=== PATIENT | male | born 1975 | race Caucasian/White ===

== ENCOUNTER 2019-06-18 15:37 | Inpatient (IN) ==
[2019-06-18 16:12] LABS: BILIRUBIN URINE NEGATIVE (NEGATIVE); BLOOD URINE NEGATIVE (NEGATIVE); CLARITY CLEAR (CLEAR); COLOR YELLOW; GLUCOSE URINE NEGATIVE (NEGATIVE); KETONE URINE 1+(Small) mg/dL (NEGATIVE); LEUKOCYTES URINE TRACE (NEGATIVE); NITRITE URINE NEGATIVE (NEGATIVE); PROTEIN URINE TRACE mg/dL (NEGATIVE); SP GRAVITY URINE 1.005; UROBILINOGEN URINE 12 mg/dL
[2019-06-18 16:23] LABS: URINE SOURCE CLEAN CATCH
[2019-06-18 16:24] LABS: URINE BACTERIA 1+ /HFP; URINE CAST NONE SEEN /LPF; URINE CRYSTAL NONE SEEN /HPF; URINE EPITHELIAL CELLS <10 /HPF (<10); URINE RBC <10 /HPF (<10); URINE WBC <10 /HPF (<10); URINE YEAST NONE SEEN /HPF
[2019-06-18 16:28] LABS: ESTIMATED GFR > 60
[2019-06-18 16:29] LABS: AGAP 16; ALBUMIN 4.4 g/dL (3.5-5.0); ALKALINE PHOSPHATASE 98 U/L (32-122); BUN 8 mg/dL (8-22); CALCIUM 9.7 mg/dL (8.8-10.2); CHLORIDE 86 mmol/L (98-107); COSMO 263; CREATININE 0.5 mg/dL (0.7-1.2); GLUCOSE 139 mg/dL (70-104); GOT 227 U/L (10-34); GPT 177 U/L (10-44); LIPASE 64 U/L (13-60); POTASSIUM 2.7 mmol/L (3.5-5.1); SODIUM 131 mmol/L (136-145); TCO2 29 mmol/L (25-35); TOTAL PROTEIN 7.3 g/dL (6.3-8.3)
[2019-06-18 16:33] LABS: UR AMPHETAMINES QUAL NONE DETECTED (NONE DETECT); UR BARBITUATES QUAL NONE DETECTED (NONE DETECT); UR BENZODIAZEPIN QUAL PRESUMPTIVE POSITIVE (NONE DETECT); UR CANNABINOIDS QUAL NONE DETECTED (NONE DETECT); UR COCAINE QUAL NONE DETECTED (NONE DETECT); UR METHADONE QUAL NONE DETECTED (NONE DETECT); UR METHAMPHETAMINE QUAL NONE DETECTED (NONE DETECT); UR OPIATES QUAL NONE DETECTED (NONE DETECT); UR OXYCODONE QUAL NONE DETECTED (NONE DETECT); UR PCP QUAL NONE DETECTED (NONE DETECT); UR PROPOXYPHENE QUAL NONE DETECTED (NONE DETECT); UR TCA QUAL NONE DETECTED (NONE DETECT)
[2019-06-18 16:33] LABS: BASO# 0.01 X1000 (0.0-0.2); BASO% 0.2 % (0.0-0.8); EOS# 0.04 X1000 (0.0-0.7); EOS% 0.6 % (0.0-10.0); HEMATOCRIT 33.8 % (42.0-52.0); IMM GRAN# 0.02 X1000 (0.0-0.04); IMM GRAN% 0.3 % (0.0-0.5); LYMPH# 1.08 X1000 (1.2-3.4); LYMPH% 16.4 % (20.5-51.1); MCH 32.7 PG (27-31); MCHC 35.5 g/dL (33-37); MCV 92.1 FL (81-99); MONO# 0.63 X1000 (0.11-0.59); MONO% 9.6 % (1.7-9.3); MPV 10.5 FL (7.4-10.4); NEUT# 4.79 X1000 (1.4-6.5); NEUT% 72.9 % (42.2-75.2); PLT 54 X1000 (130-400); RBC 3.67 XMIL (4.7-6.1); RDW 12.5 % (11.5-14.5); WBC 6.57 X1000 (4.8-10.8)
[2019-06-18] MEDS ORDERED: M.V.I.-12 10 ML, FOLIC ACID 1 MG, MAGNESIUM SULFATE 1 GM, THIAMINE 100 MG in NS 1,000 ML IV ONE (17:00)
[2019-06-18] MEDS ORDERED: ZOFRAN IV ONE (18:12)
[2019-06-18] MEDS ORDERED: ATIVAN PO ONE (18:12)
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
--- NOTE | 2019-06-18 18:34 | Diag Imaging Result Doc PS360 ---
CT HEAD/C-SPINE W/O CONTRAST, CT MAXILLOFACIAL(SINUS) W/O CO - 06/18/2019 INDICATION: ETOH abuse; head injury COMPARISON: None FINDINGS: Head CT: The ventricles and sulci are normal in size and contour. No intracranial mass or hemorrhage. The skull is intact. The sinuses, mastoids, and middle ears are clear. Cervical spine: There is straightening of the cervical spine. No fracture or subluxation. There is advanced disc degeneration at C5-C6. Soft tissues are clear. Facial bones: The facial bones are intact and normally mineralized. Orbits and orbital contents are normal. Sinuses are all clear. IMPRESSION: No acute injury. This exam was performed using automated exposure control, adjustment of mA or kV according to patient size, and/or use of iterative reconstruction technique Electronically signed by Jeremiah Johnson 06/18/2019 6:31 PM
[2019-06-18] MEDS ORDERED: POTASSIUM PHOSPHATE 40 MMOL in NS 250 ML IV ONE (18:45)
[2019-06-18] MEDS ORDERED: NS 1,000 ML IV ONE (18:52)
--- NOTE | 2019-06-18 19:02 | EKG Report ---
Test Performed on : 06/18/2019 3:55:52 PM Test Reason : tachycardia req detox Blood Pressure : / mmHG Vent. Rate : 109 BPM Atrial Rate : 109 BPM P-R Int : 152 ms QRS Dur : 082 ms QT Int : 350 ms P-R-T Axes : 047 036 029 degrees QTc Int : 471 ms Sinus tachycardia. Otherwise normal ECG No previous ECGs available Unconfirmed Result
[2019-06-18] MEDS ORDERED: BENTYL PO PRN (20:45)
[2019-06-18] MEDS ORDERED: DESYREL PO PRN (20:45)
[2019-06-18] MEDS ORDERED: D5 1/2 NS 1,000 ML IV ONE (20:45)
[2019-06-18] MEDS ORDERED: MAGNESIUM SULFATE 2 GM/S.W.I. 2 GM/50 ML IVPB IV ONE (20:45)
[2019-06-18] MEDS ORDERED: RESTORIL PO SCH (21:00)
[2019-06-18] MEDS: ZOFRAN IV PRN (21:51)
[2019-06-18] MEDS: ATIVAN IV PRN (21:52)
[2019-06-18] MEDS: LIBRIUM PO SCH (21:53)
[2019-06-19] MEDS: ATIVAN IV PRN ×3 (04:33→17:20)
[2019-06-19] MEDS: LIBRIUM PO SCH ×4 (04:33→20:41)
[2019-06-19 06:37] LABS: BASO# 0.01 X1000 (0.0-0.2); BASO% 0.3 % (0.0-0.8); EOS# 0.09 X1000 (0.0-0.7); EOS% 2.3 % (0.0-10.0); HEMATOCRIT 32.4 % (42.0-52.0); HEMOGLOBIN 11.1 g/dL (14.0-18.0); LYMPH# 0.94 X1000 (1.2-3.4); LYMPH% 24.5 % (20.5-51.1); MCH 32.3 PG (27-31); MCHC 34.3 g/dL (33-37); MCV 94.2 FL (81-99); MONO# 0.37 X1000 (0.11-0.59); MONO% 9.7 % (1.7-9.3); MPV 10.5 FL (7.4-10.4); NEUT# 2.42 X1000 (1.4-6.5); NEUT% 63.2 % (42.2-75.2); PLT 59 X1000 (130-400); RBC 3.44 XMIL (4.7-6.1); RDW 12.8 % (11.5-14.5); WBC 3.83 X1000 (4.8-10.8)
[2019-06-19 07:23] LABS: AGAP 13; ALBUMIN 3.9 g/dL (3.5-5.0); ALKALINE PHOSPHATASE 89 U/L (32-122); BUN 6 mg/dL (8-22); CALCIUM 8.8 mg/dL (8.8-10.2); CHLORIDE 98 mmol/L (98-107); COSMO 277; CREATININE 0.5 mg/dL (0.7-1.2); ESTIMATED GFR > 60; GLUCOSE 101 mg/dL (70-104); GOT 261 U/L (10-34); GPT 207 U/L (10-44); MAGNESIUM 2.2 mg/dL (1.5-2.7); POTASSIUM 3.4 mmol/L (3.5-5.1); SODIUM 140 mmol/L (136-145); TCO2 29 mmol/L (25-35); TOTAL PROTEIN 6.4 g/dL (6.3-8.3)
[2019-06-19] MEDS ORDERED: SALINE LOCK IV FLUID XX ONE (08:17)
[2019-06-19] MEDS ORDERED: BENTYL PO PRN (08:17)
[2019-06-19] MEDS ORDERED: ATARAX PO PRN (08:17)
[2019-06-19] MEDS ORDERED: ROBAXIN PO PRN (08:17)
[2019-06-19] MEDS ORDERED: KLOR-CON PO ONE (08:34)
[2019-06-19] MEDS: PRILOSEC PO SCH (08:41)
[2019-06-19] MEDS ORDERED: WELLBUTRIN XL PO SCH (09:00)
[2019-06-19] MEDS ORDERED: VITAMIN B-1 PO SCH (09:00)
--- NOTE | 2019-06-19 14:43 | HISTORY AND PHYSICAL ---
CHIEF COMPLAINT: ETOH abuse. HISTORY OF PRESENT ILLNESS: Mr. Tavares is a 43-year-old male who states that he is here for detox from alcohol. He has been binge drinking alcohol for greater than 7 years. He drinks vodka daily. He has been on a 5 day chu. His last drink was Wednesday morning. He is currently here from [place]. He has come here to go to [facility] a local rehab facility that is through his yarsanism. The patient is currently lying in the ICU bed. He is having mild shaking. He does have the smell of alcohol on his breath. He is a very pleasant person though. He states that he has been drinking since the age of 22. He was just a social drinker. However, for greater than 7 years he has been a binge drinker. His last drink was Wednesday morning and he was on a 5 day binge. He does have a significant family history of alcohol abuse and drug abuse on his mother side. The patient has no other significant symptoms at this time. He denies any nausea, any headache, any pain at this time. The patient is tolerating liquids. Denies any diarrhea. PAST MEDICAL HISTORY: Alcohol abuse. PAST SURGICAL HISTORY: The patient states he has had several arthroscopies to both knees. He has also had a deviated septum. FAMILY HISTORY: Significant for alcohol abuse in his mother's side of the family and drug abuse. SOCIAL HISTORY: The patient is . He lives in [place]. He is an alcoholic. He binge drinks. Right now he is on a 5 day binge where he has been drinking vodka. His last drink was Wednesday morning. The patient does have the presence of alcohol on his breath. He denies any smoking or any drug abuse. ALLERGIES: No known drug allergies. MEDICATIONS: 1. Lansoprazole 15 mg p.o. daily. 2. Wellbutrin XL 150 mg p.o. daily. 3. Temazepam 50 mg p.o. at bedtime. 4. Desyrel 50-100 mg p.o. q.p.m. LABS AND DIAGNOSTICS: White blood cell count 6.57, red blood cell count 3.67, hemoglobin 12, hematocrit 33.8, MCV 92.1, MCH 32.7, MCHC 35.5, RDW 12.5, platelet count 54,000. Chemistry: Sodium 131, potassium 2.7, chloride 86, carbon dioxide 29, anion gap 16, BUN 8, creatinine 0.5, estimated GFR greater than 60, glucose 139, calcium 9.7, phosphorus less than 0.03, magnesium 1.2. Total bilirubin 2.5, AST 227, ALT 177, alkaline phosphatase 98, amylase 41, lipase 64. REVIEW OF SYSTEMS: A 12 point review of systems has been obtained and are negative except what is stated above in HPI. PHYSICAL EXAMINATION: VITAL SIGNS: Temperature 98.8 degrees, pulse rate 70, respiratory rate 15, blood pressure 121/77, O2 saturation 96% on room air. GENERAL: This is a 43-year-old male. He is lying in the bed. He is in no acute distress. He is well nourished and well developed. HEENT: Atraumatic, normocephalic. Pupils equal, round, reactive to light. Sclera is icteric. Mucous membranes are dry. NECK: Supple. No lymphadenopathy. Trachea is midline. No JVD. No thyromegaly. No bruits. CARDIOVASCULAR: Regular rate and rhythm. No murmurs, gallops, or rubs appreciated. RESPIRATORY: Lung sounds are clear with equal chest excursion. Respirations are nonlabored. No accessory muscle usage. GI: Abdomen is soft, nontender, nondistended. Bowel sounds are present x4. NEUROLOGIC: Cranial nerves 2-12 intact. The patient is awake, alert, oriented, able to follow all commands appropriately. MUSCULOSKELETAL: Full distal strength noted. No abnormalities. No deformities. EXTREMITIES: No clubbing. No cyanosis. No edema. DP and PT pulses are present and palpable. SKIN: Warm, dry, and intact. No rashes. No bruises. No diaphoresis. ASSESSMENT: 1. Ethanol abuse/withdrawal. We have admitted this patient to the ICU unit. We started him on Librium and we are going to taper the dose. He is on 100 mg q.6 hours. He was on 25 mg from the ER. We had to increase the dose because he still has a lot of shaking and still has quite a lot of withdrawal symptoms going on. He is on a banana bag from the ER. We are going to continue this at this time. He is tolerating clear liquids. Will advance his diet as tolerated. He is getting some Zofran as needed for nausea. We will hold off on his home medications at this time. 2. Acute alcohol induced cirrhosis 3. Deep venous thrombosis prophylaxis. I will place some SCDs on the patient. 4. Gastrointestinal prophylaxis. I placed the patient on Prilosec daily. PLAN: We have admitted this patient to the ICU unit. We are going to monitor him for withdrawal symptoms. He is on Librium q.6 hours and we will supplement him with Ativan p.r.n. as needed. We are holding off on all of his home medications. We are going to give him a banana bag daily to supplement his vitamins. Repeat his labs as needed to monitor his liver function. I have supplemented his potassium today because it is low at 3.4 this morning. His phosphorus did correct. They replaced it in the ER. It is now 4.4. They gave him some fluid. His sodium has corrected. It is now 140. He does seem to be very pleasant and very upbeat about going to this rehab facility. All other further treatment pending hospital course and lab data. Dictated by DREW Marshall for Oscar Whatley MD cc: Oscar Whatley MD MTDD
[2019-06-19] MEDS: M.V.I.-12 10 ML, FOLIC ACID 1 MG, MAGNESIUM SULFATE 1 GM, THIAMINE 100 MG in NS 1,000 ML IV SCH (17:21)
[2019-06-19] MEDS: ZOFRAN IV PRN (19:45)
--- NOTE | 2019-06-19 21:58 | HISTORY AND PHYSICAL ---
ADDENDUM: Patient seen and examined by myself. Full note dictated and discussed with nurse practitioner. The patient still is in obvious alcohol withdrawal. He has been given Ativan several times as well as a very low dose of 25 mg Librium. We are going to increase this to the 100 mg taper q.6 hours and follow. Counseled the patient regarding alcohol, alcohol withdrawal, alcohol abuse. He is planning on going to treatment once he is stabilized. cc: Oscar Whatley MD
[2019-06-20] MEDS: LIBRIUM PO SCH ×4 (02:00→20:34)
[2019-06-20] MEDS: PRILOSEC PO SCH (06:14)
[2019-06-20 06:49] LABS: BASO# 0.01 X1000 (0.0-0.2); BASO% 0.2 % (0.0-0.8); EOS# 0.12 X1000 (0.0-0.7); EOS% 2.3 % (0.0-10.0); HEMATOCRIT 32.7 % (42.0-52.0); HEMOGLOBIN 10.8 g/dL (14.0-18.0); IMM GRAN# 0.01 X1000 (0.0-0.04); IMM GRAN% 0.2 % (0.0-0.5); LYMPH# 1.42 X1000 (1.2-3.4); LYMPH% 27.5 % (20.5-51.1); MCH 31.9 PG (27-31); MCV 96.5 FL (81-99); MONO# 0.75 X1000 (0.11-0.59); MONO% 14.5 % (1.7-9.3); MPV 9.3 FL (7.4-10.4); NEUT# 2.86 X1000 (1.4-6.5); NEUT% 55.3 % (42.2-75.2); PLT 109 X1000 (130-400); RBC 3.39 XMIL (4.7-6.1); RDW 13.3 % (11.5-14.5); WBC 5.17 X1000 (4.8-10.8)
[2019-06-20 07:02] LABS: AGAP 11; ALBUMIN 3.8 g/dL (3.5-5.0); ALKALINE PHOSPHATASE 91 U/L (32-122); BUN 7 mg/dL (8-22); CALCIUM 8.8 mg/dL (8.8-10.2); CHLORIDE 102 mmol/L (98-107); COSMO 279; CREATININE 0.5 mg/dL (0.7-1.2); ESTIMATED GFR > 60; GLUCOSE 99 mg/dL (70-104); GOT 267 U/L (10-34); GPT 290 U/L (10-44); POTASSIUM 3.8 mmol/L (3.5-5.1); SODIUM 141 mmol/L (136-145); TCO2 28 mmol/L (25-35)
[2019-06-20] MEDS: ATIVAN IV PRN ×2 (12:23→16:14)
[2019-06-20] MEDS ORDERED: LANTUS INSULIN SUBQ SCH (14:30)
[2019-06-20] MEDS ORDERED: HUMALOG (PARKWAY) SUBQ SCH (16:00)
[2019-06-20] MEDS: M.V.I.-12 10 ML, FOLIC ACID 1 MG, MAGNESIUM SULFATE 1 GM, THIAMINE 100 MG in NS 1,000 ML IV SCH (16:09)
[2019-06-20] MEDS ORDERED: GLUCOPHAGE PO SCH (17:00)
[2019-06-21] MEDS: LIBRIUM PO SCH ×4 (02:00→19:58)
[2019-06-21 04:54] LABS: HEMOGLOBIN 10.6 g/dL (14.0-18.0); MCH 32.3 PG (27-31); MCHC 33.1 g/dL (33-37); MCV 97.6 FL (81-99); MPV 9.2 FL (7.4-10.4); RBC 3.28 XMIL (4.7-6.1); RDW 13.6 % (11.5-14.5); WBC 4.82 X1000 (4.8-10.8)
[2019-06-21 04:55] LABS: AGAP 9; BUN 10 mg/dL (8-22); CHLORIDE 104 mmol/L (98-107); COSMO 277; CREATININE 0.5 mg/dL (0.7-1.2); ESTIMATED GFR > 60; GLUCOSE 110 mg/dL (70-104); MAGNESIUM 1.7 mg/dL (1.5-2.7); POTASSIUM 3.8 mmol/L (3.5-5.1); SODIUM 139 mmol/L (136-145); TCO2 26 mmol/L (25-35)
[2019-06-21] MEDS: PRILOSEC PO SCH (06:09)
--- NOTE | 2019-06-21 08:49 | Diag Imaging Result Doc PS360 ---
EXAM: US ABDOMEN-COMPLETE HISTORY: abdominal pain TECHNIQUE: Abdominal ultrasound COMPARISON: None. FINDINGS: No abdominal aortic aneurysm. Normal pancreas. The liver is prominent measuring approximately 22 cm. There is fatty infiltration of the liver. The common bile duct measures 3 mm. Normal gallbladder. No stones. Normal right kidney. No hydronephrosis. Inferior vena cava is poorly seen. Normal left kidney. No hydronephrosis. Normal spleen. No ascites. IMPRESSION: Hepatomegaly with fatty infiltration Electronically signed by Dangelo Clark 06/21/2019 8:46 AM
[2019-06-21] MEDS ORDERED: LANTUS INSULIN SUBQ SCH (09:00)
[2019-06-21] MEDS: ATIVAN IV PRN ×2 (12:58→19:58)
[2019-06-21 15:17] LABS: AGAP 12; ALBUMIN 3.9 g/dL (3.5-5.0); ALKALINE PHOSPHATASE 106 U/L (32-122); BUN 9 mg/dL (8-22); CALCIUM 9.2 mg/dL (8.8-10.2); CHLORIDE 103 mmol/L (98-107); COSMO 283; CREATININE 0.7 mg/dL (0.7-1.2); ESTIMATED GFR > 60; GLUCOSE 116 mg/dL (70-104); GOT 216 U/L (10-34); GPT 325 U/L (10-44); POTASSIUM 4.2 mmol/L (3.5-5.1); SODIUM 142 mmol/L (136-145); TCO2 28 mmol/L (25-35); TOTAL PROTEIN 6.4 g/dL (6.3-8.3)
[2019-06-21] MEDS: M.V.I.-12 10 ML, FOLIC ACID 1 MG, MAGNESIUM SULFATE 1 GM, THIAMINE 100 MG in NS 1,000 ML IV SCH ×2 (17:19→17:20)
--- NOTE | 2019-06-21 22:23 | PROGRESS NOTE ---
DATE: 06/20/2019 SUBJECTIVE: Patient has no major complaints. He seems no major issues there. OBJECTIVE: Blood pressure 136/83, heart rate 71, respiratory rate of 10, and temperature 98.4 degrees, 99% on room air.Cardiovascular: Regular rate and rhythm. Pulmonary: Bilateral breath sounds. Clear to auscultation. GI: Soft, nontender, nondistended. Bowel sounds are positive. LABORATORY DATA: White count 5, hemoglobin and hematocrit 10 and 32, platelets 109,000. Basic was normal with a creatinine down to 1.4. AST and ALT of 267 and 290. PROBLEM LIST: 1. Alcohol withdrawal syndrome. He seems to be stabilized on oral agents including a Librium taper. We will continue banana bag and follow closely. 2. Steatohepatitis. We will continue to monitor. Check hepatitis profile, ultrasound and monitor liver enzymes. DISPOSITION: Pending his clinical status. We will continue to monitor closely and decide about rehab options at discharge. Apparently has something lined up previously. cc: Filiberto Osorio MD
--- NOTE | 2019-06-21 22:33 | PROGRESS NOTE ---
DATE: 06/21/2019 SUBJECTIVE: Patient has no major complaints. No tremulousness, no agitation. OBJECTIVE: Blood pressure is 118/68, heart rate of 82, respiratory rate 17, temperature 98.4 degrees.Cardiovascular: Regular rate and rhythm. Pulmonary: Bilateral breath sounds clear to auscultation. Gastrointestinal: Soft, nontender, nondistended. Bowel sounds are positive. LABORATORY DATA: White count 4, hemoglobin and hematocrit 10 and 32, platelets of 165,000, which is an improvement. Basic was normal. T bilirubin down to 0.8. AST and ALT down to 216 and 325. PROBLEM LIST: 1. Alcoholic hepatitis, but does not qualify for steroid infusion. There is no evidence of need based on the discriminant function. We will continue to monitor. Work on supportive measures. 2. Alcohol withdrawal syndrome. We will continue Librium as needed. We will work on ambulation and adjusting his medications accordingly. DISPOSITION: If stable, will able to discharge in next 1 to 2 hours. He has rehab plans when he leaves the hospital. We will arrange those tomorrow if the patient is stable. There is no major issues. cc: Filiberto Osorio MD [facility]
[2019-06-21 23:18] LABS: AGAP 14; ALBUMIN 3.7 g/dL (3.5-5.0); ALKALINE PHOSPHATASE 126 U/L (32-122); BUN 11 mg/dL (8-22); CALCIUM 9.2 mg/dL (8.8-10.2); CHLORIDE 103 mmol/L (98-107); COSMO 279; CREATININE 0.8 mg/dL (0.7-1.2); ESTIMATED GFR > 60; GLUCOSE 94 mg/dL (70-104); GOT 206 U/L (10-34); GPT 321 U/L (10-44); POTASSIUM 4.5 mmol/L (3.5-5.1); SODIUM 140 mmol/L (136-145); TCO2 24 mmol/L (25-35); TOTAL PROTEIN 6.4 g/dL (6.3-8.3)
[2019-06-22] MEDS ORDERED: ATARAX PO PRN (01:00)
[2019-06-22] MEDS ORDERED: ZOFRAN IV PRN (01:00)
[2019-06-22] MEDS ORDERED: BENTYL PO PRN (01:00)
[2019-06-22] MEDS ORDERED: DESYREL PO PRN (01:00)
[2019-06-22] MEDS ORDERED: ATIVAN IV PRN (01:00)
[2019-06-22] MEDS ORDERED: ROBAXIN PO PRN (01:00)
[2019-06-22] MEDS: LIBRIUM PO SCH ×2 (03:03→10:35)
[2019-06-22] MEDS ORDERED: PRILOSEC PO SCH (07:00)
[2019-06-22 07:02] LABS: BASO# 0.01 X1000 (0.0-0.2); BASO% 0.2 % (0.0-0.8); EOS# 0.09 X1000 (0.0-0.7); EOS% 1.9 % (0.0-10.0); HEMATOCRIT 33.6 % (42.0-52.0); HEMOGLOBIN 10.9 g/dL (14.0-18.0); IMM GRAN# 0.03 X1000 (0.0-0.04); IMM GRAN% 0.6 % (0.0-0.5); LYMPH# 1.44 X1000 (1.2-3.4); MCH 32.1 PG (27-31); MCHC 32.4 g/dL (33-37); MCV 98.8 FL (81-99); MONO% 23.7 % (1.7-9.3); MPV 9.5 FL (7.4-10.4); NEUT# 1.98 X1000 (1.4-6.5); NEUT% 42.6 % (42.2-75.2); PLT 210 X1000 (130-400); WBC 4.65 X1000 (4.8-10.8)
[2019-06-22 07:17] LABS: AGAP 11; ALBUMIN 3.9 g/dL (3.5-5.0); ALKALINE PHOSPHATASE 107 U/L (32-122); BUN 11 mg/dL (8-22); CALCIUM 9.1 mg/dL (8.8-10.2); CHLORIDE 103 mmol/L (98-107); COSMO 279; CREATININE 0.6 mg/dL (0.7-1.2); ESTIMATED GFR > 60; GLUCOSE 100 mg/dL (70-104); GOT 187 U/L (10-34); GPT 311 U/L (10-44); SODIUM 140 mmol/L (136-145); TCO2 26 mmol/L (25-35); TOTAL PROTEIN 6.4 g/dL (6.3-8.3)
[2019-06-22 08:02] LABS: BANDS 2 % (0-1); EOS 1 % (1-10); LYMPHS 30 % (21-51); MONO 21 % (1-9); SEGS 46 % (42-75)
[2019-06-22] MEDS ORDERED: M.V.I.-12 10 ML, FOLIC ACID 1 MG, MAGNESIUM SULFATE 1 GM, THIAMINE 100 MG in NS 1,000 ML IV SCH (09:00)
[2019-06-22] MEDS ORDERED: PREVACID SOLUTAB PO SCH (09:00)
[2019-06-22 12:01] VITALS: BP 120/83
--- NOTE | 2019-06-23 04:10 | DISCHARGE SUMMARY ---
ADMISSION DATE: 06/18/2019 DISCHARGE DATE: 06/22/2019 PRIMARY CARE PHYSICIAN: None. ADMISSION DIAGNOSES: 1. Ethanol abuse and withdrawal. 2. Alcohol acute induced cirrhosis. DISCHARGE DIAGNOSES: 1. Alcoholic hepatitis, but did not qualify for a steroid infusion. 2. Alcohol withdrawal syndrome summary. SUMMARY OF FINDINGS: This is a 43-year-old male who had been binge drinking alcohol for greater than 7 years. Drinks vodka daily and had been on a five-day binge. Last drink was on Wednesday morning and was here from [place]. Had come here to [facility], a local rehab facility that is through [facility]. He was admitted to the intensive care unit. Stated that he had been drinking since the age of 22. He had a significant family history of alcohol and drug abuse on his mother side. Was admitted, placed on a Librium taper. Gave him Ativan p.r.n. Gave him a banana bag of fluids daily to supplement his vitamin. We monitored his liver function. He was transferred out to the medical floor, was detoxed appropriately. Was noted to have had an abdomen ultrasound on 06/21/2019 that showed hepatomegaly with fatty infiltration and now it is felt that he can safely be discharged home. DISCHARGE MEDICATIONS: Bupropion 150 mg p.o. daily, a prescription for Librium 25 mg p.o. t.i.d. #20 no refills p.r.n., folic acid 1 mg p.o. daily and lansoprazole 15 mg p.o. daily, temazepam 15 mg p.o. at bedtime, thiamine 100 mg p.o. daily, trazodone 50 to 100 mg p.o. q.p.m. p.r.n. FOLLOWUP: He needs to obtain a primary care physician. We can provide him with the physician referral line to follow up and we discussed at length ETOH cessation with this patient who verbalized understanding. TIME SPENT: This is a 35 minute discharge. Dictated by DREW Hanna for Filiberto Osorio MD cc: DREW Hanna MD
--- NOTE | 2019-06-23 05:48 | DISCHARGE SUMMARY ---
ADMISSION DATE: 06/18/2019 DISCHARGE DATE: 06/22/2019 ADDENDUM: Patient is doing well. No major issues. Hemoglobin and hematocrit is stable. All tests are stable. AST and ALT continues to trend downwards. Anticipate discharge soon today, and he will go to rehab to complete his therapy. He was given thiamine, folate, and Librium p.r.n. in addition to his home Wellbutrin, lansoprazole, trazodone, and temazepam, although told not to take the temazepam while he is taking the Librium. This is a [id number] encounter note with DREW Hanna TIME SPENT: 32 minute discharge. cc: Filiberto Osorio MD
[2019-06-23 10:39] LABS: HEPATITIS PROFILE ACUTE SEE COMMENTS
== END 2019-06-22 14:35 | disposition home or self-care (01) | DRG 897 ==
LOC: P.ED 15:37 → P.ICU 20:42 → SUATTDRO 20:42 → P.MEDSURG 06-21 22:14
PROVIDERS: ATTEND Internal Medicine